=== PATIENT | female | born 1965 | race Caucasian/White ===

== ENCOUNTER 2022-06-19 07:41 | Inpatient (IN) ==
[2022-06-19] MEDS ORDERED: CeFAZolin Syr 2,000MG/20 ML 2,000 MG/20 ML SYRINGE IVPB ONE (07:51)
[2022-06-19] MEDS ORDERED: Famotidine 20 MG TABLET PO ONE (08:00)
[2022-06-19] MEDS ORDERED: Albuterol 2.5 MG/3 ML NEBULIZER IH ONE (08:00)
[2022-06-19] MEDS ORDERED: Acetaminophen IV 1,000 MG/100 ML BAG IVPB ONE (08:00)
[2022-06-19] MEDS ORDERED: *HR* Midazolam HCl 2 MG/2 ML VIAL ONE (08:13)
[2022-06-19] MEDS ORDERED: *HR* FentaNYL (PF) 100 MCG/2 ML VIAL ONE (08:14)
[2022-06-19] MEDS ORDERED: Ropivacaine/PF 0.5% 30 ML VIAL ONE (08:14)
[2022-06-19] MEDS ORDERED: ROPIVACAINE/PF/NS 0.25% 1 EACH SYRINGE INTRAART ONE (08:14)
[2022-06-19] MEDS ORDERED: Povidone-Iodine 45 ML, Sodium Chloride IRRigation 1,000 ML IR ONE (08:15)
[2022-06-19] MEDS ORDERED: TOTAL JOINT MIXTURE (100ML) INTRAART ONE (08:15)
[2022-06-19] MEDS: Ringers Solution, Lactated 1,000 ML IVC SCH ×2 (08:41→13:53)
[2022-06-19] MEDS ORDERED: Ketorolac 30 MG/ML VIAL IVP PRN (08:43)
[2022-06-19] MEDS ORDERED: *HR* OxyCODONE Immed Rel 5 MG TABLET PO PRN (08:43)
[2022-06-19] MEDS ORDERED: Acetaminophen IV 1,000 MG/100 ML BAG IVPB PRN (08:43)
[2022-06-19] MEDS ORDERED: Ondansetron 4 MG/2 ML VIAL IVP PRN ×2 (08:43→15:07)
[2022-06-19] MEDS ORDERED: *HR* Labetalol 20 MG/4 ML SYRINGE IVP PRN (08:43)
[2022-06-19] MEDS ORDERED: Lidocaine -MPF 2% 2 ML VIAL ONE (08:51)
[2022-06-19] MEDS ORDERED: *HR* Propofol 200 MG/20 ML VIAL IVP ONE (08:51)
[2022-06-19] MEDS ORDERED: Ondansetron 4 MG/2 ML VIAL ONE (08:51)
[2022-06-19] MEDS ORDERED: Lidocaine HCL 4 ML Topical Solution (Laryng-O-Jet Kit Sterile Pak) TP ONE (11:35)
[2022-06-19] MEDS ORDERED: Vancomycin 1,000 MG VIAL ONE (11:52)
[2022-06-19] MEDS ORDERED: Tranexamic Acid 1,000 MG/10 ML VIAL ONE (12:25)
[2022-06-19] MEDS: *HR* FentaNYL (PF) 100 MCG/2 ML VIAL IVP PRN ×4 (13:51→14:25)
[2022-06-19] MEDS ORDERED: *HR* Promethazine 25 MG/ML VIAL IM PRN (15:07)
[2022-06-19] MEDS ORDERED: Sennosides 8.6 MG TABLET PO PRN (15:07)
[2022-06-19] MEDS ORDERED: MOM Conc 10 ML UD.LIQ PO PRN (15:07)
[2022-06-19] MEDS ORDERED: Naloxone 0.4 MG/ML INJ IVP PRN (15:07)
[2022-06-19] MEDS ORDERED: Albuterol 2.5 MG/3 ML NEBULIZER IH PRN (15:07)
[2022-06-19] MEDS: Ketorolac 30 MG/ML VIAL IVP SCH ×2 (17:09→23:13)
[2022-06-19] MEDS: Ascorbic Acid 500 MG TABLET PO SCH (17:09)
[2022-06-19] MEDS: *HR* OxyCODONE Immed Rel 5 MG TABLET PO PRN (21:05)
[2022-06-19] MEDS: lamoTRIgine 100 MG TABLET PO SCH (21:05)
[2022-06-19] MEDS: clonazePAM 1 MG TABLET PO SCH (21:05)
[2022-06-19] MEDS: Topiramate 100 MG TABLET PO SCH (21:05)
[2022-06-19] MEDS: CeFAZolin 2 GM/120 ML BAG IVPB SCH (21:06)
[2022-06-20] MEDS: CeFAZolin 2 GM/120 ML BAG IVPB SCH ×3 (04:07→21:24)
[2022-06-20] MEDS: Ketorolac 30 MG/ML VIAL IVP SCH ×3 (04:54→18:51)
[2022-06-20 08:24] LABS: Basophils % 0.3 %; Eosinophils # 0.1 K/mcL (0.0-0.6); Eosinophils % 1.6 %; Hematocrit 41.7 % (35.3-44.9); Hemoglobin 13.8 g/dL (11.5-15.4); Immature Granulocytes % 0.3 % (0-4); Lymphocytes % 29.1 %; Mean Corpuscular HGB Conc 33.1 g/dL (31.6-35.5); Mean Corpuscular Hemoglobin 29.7 pg (28.0-33.3); Mean Corpuscular Volume 89.7 fL (83.0-100.0); Mean Platelet Volume 9.1 fL (9.4-12.4); Monocytes # 0.4 K/mcL (0.0-1.3); Monocytes % 5.9 %; Neutrophils # 4.3 K/mcL (1.6-8.9); Platelet Count 184 K/mcL (140-400); Red Blood Count 4.65 M/mcL (3.82-4.97); Red Cell Distribution Width 12.5 % (11.5-14.5); Segmented Neutrophils % 62.8 %; White Blood Count 6.9 K/mcL (4.3-11.1)
[2022-06-20 08:43] LABS: Calcium 8.4 mg/dL (8.6-10.3); Potassium 3.1 mEq/L (3.5-5.1)
[2022-06-20] MEDS ORDERED: Psyllium 1 PACKET POWD.PACK PO SCH (09:00)
[2022-06-20] MEDS: *HR* OxyCODONE Immed Rel 5 MG TABLET PO PRN ×2 (09:02→22:48)
[2022-06-20] MEDS: Multivit/Ca/Min/Fe/FA 1 TAB TABLET PO SCH (09:02)
[2022-06-20] MEDS: clonazePAM 1 MG TABLET PO SCH ×2 (09:02→22:00)
[2022-06-20] MEDS: Ascorbic Acid 500 MG TABLET PO SCH ×2 (09:02→17:58)
[2022-06-20] MEDS: hydroCHLOROthiazide 25 MG TABLET PO SCH (09:05)
[2022-06-20] MEDS: polyethylene glycoL 3350 17 GM POWD.PACK PO SCH (09:05)
[2022-06-20] MEDS: Topiramate 100 MG TABLET PO SCH ×2 (09:48→22:00)
[2022-06-20] MEDS: Aspirin Enteric Coated 81 MG Tablet PO SCH (13:31)
[2022-06-20] MEDS: lamoTRIgine 100 MG TABLET PO SCH (22:00)
[2022-06-21] MEDS: CeFAZolin 2 GM/120 ML BAG IVPB SCH ×3 (05:01→19:58)
[2022-06-21] MEDS: Ketorolac 30 MG/ML VIAL IVP SCH ×5 (05:27→23:17)
[2022-06-21 07:07] LABS: Basophils # 0.1 K/mcL (0.0-0.2); Basophils % 0.9 %; Eosinophils # 0.2 K/mcL (0.0-0.6); Eosinophils % 3.4 %; Hematocrit 39.9 % (35.3-44.9); Hemoglobin 13.3 g/dL (11.5-15.4); Immature Granulocytes % 0.4 % (0-4); Lymphocytes # 1.8 K/mcL (0.6-4.6); Lymphocytes % 26.7 %; Mean Corpuscular HGB Conc 33.3 g/dL (31.6-35.5); Mean Corpuscular Volume 90.1 fL (83.0-100.0); Mean Platelet Volume 9.3 fL (9.4-12.4); Monocytes # 0.3 K/mcL (0.0-1.3); Monocytes % 4.9 %; Neutrophils # 4.3 K/mcL (1.6-8.9); Platelet Count 183 K/mcL (140-400); Red Blood Count 4.43 M/mcL (3.82-4.97); Red Cell Distribution Width 12.9 % (11.5-14.5); Segmented Neutrophils % 63.7 %; White Blood Count 6.8 K/mcL (4.3-11.1)
[2022-06-21 07:49] LABS: Calcium 8.4 mg/dL (8.6-10.3); Potassium 3.3 mEq/L (3.5-5.1)
[2022-06-21] MEDS: Ascorbic Acid 500 MG TABLET PO SCH ×2 (09:42→17:17)
[2022-06-21] MEDS: Aspirin Enteric Coated 81 MG Tablet PO SCH (09:42)
[2022-06-21] MEDS: hydroCHLOROthiazide 25 MG TABLET PO SCH (09:43)
[2022-06-21] MEDS: Topiramate 100 MG TABLET PO SCH ×2 (09:48→19:58)
[2022-06-21] MEDS: Multivit/Ca/Min/Fe/FA 1 TAB TABLET PO SCH (09:48)
[2022-06-21] MEDS: clonazePAM 1 MG TABLET PO SCH ×2 (09:48→19:59)
[2022-06-21] MEDS: polyethylene glycoL 3350 17 GM POWD.PACK PO SCH (09:48)
[2022-06-21] MEDS: *HR* OxyCODONE Immed Rel 5 MG TABLET PO PRN ×2 (09:56→17:18)
[2022-06-21] MEDS: Ringers Solution, Lactated 1,000 ML IVC SCH (19:48)
[2022-06-21] MEDS: lamoTRIgine 100 MG TABLET PO SCH (19:59)
[2022-06-22] MEDS: CeFAZolin 2 GM/120 ML BAG IVPB SCH ×3 (03:55→19:32)
[2022-06-22] MEDS: *HR* OxyCODONE Immed Rel 5 MG TABLET PO PRN ×4 (03:55→19:32)
[2022-06-22] MEDS: Ketorolac 30 MG/ML VIAL IVP SCH ×3 (05:12→18:28)
[2022-06-22] MEDS: hydroCHLOROthiazide 25 MG TABLET PO SCH (07:58)
[2022-06-22] MEDS: clonazePAM 1 MG TABLET PO SCH ×2 (07:58→19:32)
[2022-06-22] MEDS: Multivit/Ca/Min/Fe/FA 1 TAB TABLET PO SCH (07:58)
[2022-06-22] MEDS: Aspirin Enteric Coated 81 MG Tablet PO SCH (07:58)
[2022-06-22] MEDS: Ascorbic Acid 500 MG TABLET PO SCH ×2 (07:58→18:28)
[2022-06-22] MEDS: Topiramate 100 MG TABLET PO SCH ×2 (07:59→19:32)
[2022-06-22] MEDS: polyethylene glycoL 3350 17 GM POWD.PACK PO SCH (08:02)
[2022-06-22] MEDS ORDERED: Flu Vac QV 22-23 (6MOS UP)/PF 0.5 ML SYRINGE IM ONE (15:26)
[2022-06-22] MEDS: lamoTRIgine 100 MG TABLET PO SCH (19:32)
[2022-06-22] MEDS: Ringers Solution, Lactated 1,000 ML IVC SCH ×2 (19:32→21:32)
[2022-06-23] MEDS: Ketorolac 30 MG/ML VIAL IVP SCH ×3 (00:16→13:26)
[2022-06-23] MEDS: *HR* OxyCODONE Immed Rel 5 MG TABLET PO PRN ×2 (00:51→04:59)
[2022-06-23] MEDS: CeFAZolin 2 GM/120 ML BAG IVPB SCH ×2 (04:58→12:10)
[2022-06-23 07:08] VITALS: PULSE 80
[2022-06-23] MEDS: clonazePAM 1 MG TABLET PO SCH (07:45)
[2022-06-23] MEDS: Ascorbic Acid 500 MG TABLET PO SCH (07:45)
[2022-06-23] MEDS: Multivit/Ca/Min/Fe/FA 1 TAB TABLET PO SCH (07:45)
[2022-06-23] MEDS: Aspirin Enteric Coated 81 MG Tablet PO SCH (07:45)
[2022-06-23] MEDS: Topiramate 100 MG TABLET PO SCH (07:45)
[2022-06-23] MEDS: hydroCHLOROthiazide 25 MG TABLET PO SCH (07:45)
[2022-06-23] MEDS: polyethylene glycoL 3350 17 GM POWD.PACK PO SCH (07:48)
[2022-06-23 10:31] VITALS: BP 141/76; TEMP 98.5; O2SAT 95
[2022-06-23 12:54] LABS: Influenza A PCR Negative (Negative); Influenza B PCR Negative (Negative); Resp. Syncytial Virus PCR Negative (Negative)
[2022-06-23 12:55] LABS: SARS-CoV-2 by PCR (In House) Negative (Negative)
[2022-06-23] MEDS ORDERED: Flu Vac QV 22-23 (6MOS UP)/PF 0.5 ML SYRINGE IM ONE (13:13)
== END 2022-06-23 16:10 | DRG 470 ==
LOC: SDCAOSI 07:41 → 4WAOSI 15:26 → INTOOBSV 06-20 13:26
PROVIDERS: ADMIT Orthopaedic Surgery; ATTEND Orthopaedic Surgery